=== PATIENT | female | born 1965 | race Hispanic/Latino ===

== ENCOUNTER 2024-05-26 17:39 | Inpatient (IN) | payer BC ==
[~2024-05-26] VITALS: Ht 165.1 cm; Wt 71.7 kg
[2024-05-26 18:48] VITALS: TEMP 97.9
[2024-05-26 19:17] LABS: BASOPHILS # (AUTO) 0.1 (0.0-0.1); BASOPHILS % 0.9 % (0.0-1.0); EOSINOPHILS # (AUTO) 0.1 (0.0-0.4); EOSINOPHILS % 0.8 % (0.0-6.0); HEMATOCRIT 41.8 % (34.2-44.1); HEMOGLOBIN 13.5 g/dL (12.0-16.0); LYMPHOCYTES # (AUTO) 1.7 (1.0-3.2); LYMPHOCYTES % 25.3 % (18.0-39.1); MEAN CORPUSCULAR HEMOGLOBIN 30.8 pg (28-32); MEAN CORPUSCULAR HGB CONC 32.3 g/dL (31-35); MEAN CORPUSCULAR VOLUME 95.2 fL (81-99); MONOCYTES # (AUTO) 0.5 (0.2-0.8); MONOCYTES % 8.1 % (4.4-11.3); NEUTROPHILS # (AUTO) 4.3 (2.1-6.9); NEUTROPHILS % 64.7 % (38.7-80.0); PLATELET COUNT 240 x10e3/uL (140-360); RED BLOOD COUNT 4.39 x10e6/uL (3.6-5.1); RED CELL DISTRIBUTION WIDTH 12.4 % (11.7-14.4); WHITE BLOOD COUNT 6.63 x10e3/uL (4.8-10.8)
[2024-05-26] MEDS: SODIUM CHLORIDE 0.9% 1000ML 1,000 ML IV ONE (19:17)
[2024-05-26 19:21] LABS: BILIRUBIN,URINE NEGATIVE (NEGATIVE); CLARITY,URINE SL CLOUDY (CLEAR); COLOR,URINE YELLOW (YELLOW); GLUCOSE, URINE 500 (NEGATIVE); KETONES,URINE 1+ (NEGATIVE); LEUKOCYTE ESTERASE ,URINE NEGATIVE (NEGATIVE); NITRITE,URINE NEGATIVE (NEGATIVE); PH,URINE 5.5 (5 - 7); PROTEIN,URINE DIPSTICK 2+ (NEGATIVE); URINE UROBILINOGEN 0.2 mg/dL (0.2 - 1)
[2024-05-26 19:31] LABS: LIPASE 227 U/L (8-78)
[2024-05-26 19:34] LABS: ALBUMIN 4.4 g/dL (3.5-5.0); ANION GAP 37.9 mmol/L (8-16); BILIRUBIN,TOTAL 0.6 mg/dL (0.2-1.2); CALCIUM 9.5 mg/dL (8.4-10.2); CREATININE, SERUM 10.8 mg/dL (0.57-1.11); TOTAL PROTEIN 8.8 g/dL (6.5-8.1)
[2024-05-26 19:36] LABS: POTASSIUM 5.9 mmol/L (3.5-5.1)
[2024-05-26 19:42] LABS: AMORPHOUS SEDIMENT,URINE MANY (FEW); BACTERIA,URINE MANY /HPF; EPITHELIAL CELLS,URINE FEW /LPF; RENAL EPITHELIAL CELLS,URINE FEW
[2024-05-26 19:43] LABS: TRANSITIONAL EPI CELLS,URINE MODERATE
[2024-05-26 19:58] LABS: TROPONIN I < 0.001 ng/mL (0-0.300)
[2024-05-26] MEDS: DEXTROSE 50% SYRINGE 50 ML IV ONE (20:04)
[2024-05-26] MEDS: INSULIN REGULAR, HUMAN 100 UNIT/1 ML IV ONE (20:06)
[2024-05-26] MEDS ORDERED: SODIUM CHLORIDE 0.9% 100 ML ONE (20:06)
[2024-05-26] MEDS: SODIUM BICARBONATE 8.4% INJ 50 ML SYR IV STA (20:08)
[2024-05-26] MEDS: CALCIUM CHLORIDE 10% 1.36 MEQ/ML 10ML SYR IV STA (20:08)
[2024-05-26] MEDS: SOD POLYSTYRENE SULFONATE SUSP 15 GM/60 ML BTL PO ONE (20:08)
[2024-05-26] MEDS ORDERED: ONDANSETRON HCL INJ 2MG/ML 2ML 2 MG/ML VIAL IV PRN (22:30)
[2024-05-26] MEDS ORDERED: SODIUM CHLORIDE FLUSH 10 ML SYR INJ PRN (22:30)
[2024-05-26] MEDS ORDERED: DEXTROSE 50% SYRINGE 50 ML IV PRN (22:30)
[2024-05-26 22:40] VITALS: PULSE 88; RESP 18; O2SAT 100
[2024-05-26 22:52] LABS: ABG PCO2 28 mmHg (35-45); ABG PH 7.27 (7.35-7.45)
[2024-05-26 22:53] LABS: ABG HCO3 13 mmol/L (22-26); ABG PO2 105 mmHg (80-105); ABG TCO2 14
[2024-05-26 23:10] VITALS: PULSE 85; RESP 18
[2024-05-26] MEDS: SODIUM BICARBONATE 8.4% SYRING 150 ML in DEXTROSE 5% 1,000 ML IV ONE (23:15)
[2024-05-27] MEDS ORDERED: ONDANSETRON ODT8 MG PO (02:46)
[2024-05-27] MEDS ORDERED: LOSARTAN-HCTZ1 EACH BLADIN (02:46)
[2024-05-27] MEDS ORDERED: PEPCID20 MG PO (02:46)
[2024-05-27] MEDS ORDERED: FAMOTIDINE20 MG PO (02:46)
[2024-05-27] MEDS ORDERED: METFORMIN HCL500 MG PO (02:46)
[2024-05-27 02:49] VITALS: BP 141/74; PULSE 85; RESP 18; TEMP 98.8; O2SAT 100
[2024-05-27 04:00] VITALS: BP 128/71; PULSE 89; RESP 20; TEMP 98; O2SAT 100
[2024-05-27 06:33] LABS: BASOPHILS % 0.5 % (0.0-1.0); EOSINOPHILS # (AUTO) 0.1 (0.0-0.4); EOSINOPHILS % 1.1 % (0.0-6.0); HEMATOCRIT 40.3 % (34.2-44.1); HEMOGLOBIN 13.3 g/dL (12.0-16.0); LYMPHOCYTES # (AUTO) 1.7 (1.0-3.2); LYMPHOCYTES % 22.7 % (18.0-39.1); MEAN CORPUSCULAR HEMOGLOBIN 30.9 pg (28-32); MEAN CORPUSCULAR VOLUME 93.5 fL (81-99); MONOCYTES # (AUTO) 0.7 (0.2-0.8); MONOCYTES % 9.4 % (4.4-11.3); NEUTROPHILS # (AUTO) 4.8 (2.1-6.9); NEUTROPHILS % 65.9 % (38.7-80.0); PLATELET COUNT 246 x10e3/uL (140-360); RED BLOOD COUNT 4.31 x10e6/uL (3.6-5.1); RED CELL DISTRIBUTION WIDTH 12.2 % (11.7-14.4); WHITE BLOOD COUNT 7.31 x10e3/uL (4.8-10.8)
[2024-05-27 06:59] LABS: CREATINE KINASE 84 IU/L (29-168)
[2024-05-27 07:01] LABS: ALBUMIN 4.1 g/dL (3.5-5.0); ANION GAP 25.7 mmol/L (8-16); BILIRUBIN,TOTAL 0.6 mg/dL (0.2-1.2); CALCIUM 9.4 mg/dL (8.4-10.2); CREATININE, SERUM 9.25 mg/dL (0.57-1.11); POTASSIUM 4.7 mmol/L (3.5-5.1); TOTAL PROTEIN 8.3 g/dL (6.5-8.1)
[2024-05-27 07:08] LABS: TROPONIN I < 0.001 ng/mL (0-0.300)
[2024-05-27 07:49] VITALS: BP 141/74; PULSE 85; RESP 18; TEMP 98.8; O2SAT 100
[2024-05-27 09:00] VITALS: BP 103/62; PULSE 90; RESP 18; TEMP 98.8; O2SAT 100
[2024-05-27] MEDS: INSULIN REGULAR, HUMAN 100 UNIT/1 ML SQ SCH (09:23)
[2024-05-27] MEDS: LACTATED RINGER'S 1,000 ML INJ SCH (14:42)
[2024-05-27 17:30] VITALS: BP 100/54; PULSE 80; RESP 19; TEMP 98.5; O2SAT 99
[2024-05-27 20:00] VITALS: BP 113/56; PULSE 87; RESP 20; TEMP 98.7; O2SAT 100
[2024-05-28] VITALS (8 sets, daily range): BP systolic 123–132; BP diastolic 62–74; PULSE 79–98; RESP 17–20; TEMP 98.1–98.7; O2SAT 100
[2024-05-28 05:29] LABS: ANION GAP 17.4 mmol/L (8-16); CALCIUM 8.7 mg/dL (8.4-10.2); CREATININE, SERUM 6.15 mg/dL (0.57-1.11)
[2024-05-28 05:30] LABS: POTASSIUM 3.4 mmol/L (3.5-5.1)
[2024-05-28 06:02] LABS: CREATINE KINASE 79 IU/L (29-168)
[2024-05-28 06:11] LABS: TROPONIN I < 0.001 ng/mL (0-0.300)
[2024-05-28] MEDS: LACTATED RINGER'S 1,000 ML INJ SCH (12:24)
[2024-05-29] VITALS (9 sets, daily range): BP systolic 109–132; BP diastolic 65–76; PULSE 63–95; RESP 17–18; TEMP 98–98.6; O2SAT 98–100
[2024-05-29 06:11] LABS: ANION GAP 17.3 mmol/L (8-16); CREATININE, SERUM 3.07 mg/dL (0.57-1.11)
[2024-05-29 06:12] LABS: CALCIUM 8.1 mg/dL (8.4-10.2)
[2024-05-29 06:14] LABS: POTASSIUM 3.3 mmol/L (3.5-5.1)
[2024-05-29 07:19] LABS: COMPLEMENT C3 172 mg/dL (82-167)
[2024-05-29 09:49] LABS: COMPLEMENT C4 25 mg/dL (12-38)
[2024-05-29 10:06] LABS: TOTAL PROTEIN, URINE 28.4 mg/dL (1-14)
[2024-05-29 10:08] LABS: TOTAL PROTEIN 24HR, URINE 724.2 mg/24hr (50-100)
[2024-05-29 12:22] LABS: ANTI DNA DS ANTIBODY <1 IU/mL (0-9)
[2024-05-29] MEDS: LACTATED RINGER'S 1,000 ML INJ SCH (16:18)
[2024-05-30] VITALS (7 sets, daily range): BP systolic 120–136; BP diastolic 68–70; PULSE 69–78; RESP 16–19; TEMP 97.8–98.6; O2SAT 100
[2024-05-30 06:47] LABS: ANION GAP 14.7 mmol/L (8-16); CALCIUM 7.9 mg/dL (8.4-10.2); CREATININE, SERUM 1.67 mg/dL (0.57-1.11); POTASSIUM 3.7 mmol/L (3.5-5.1)
[2024-05-30 15:16] LABS: cANCA TITER <1:20 titer (Neg:<1:20)
[2024-05-30 16:20] LABS: ATYPICAL pANCA TITER <1:20 titer (Neg:<1:20); pANCA TITER <1:20 titer (Neg:<1:20)
[2024-05-31 09:40] LABS: SPE ALPHA 1 GLOBULIN 0.3
[2024-05-31 09:41] LABS: SPE ALPHA 2 GLOBULIN 0.9; SPE GAMMA GLOBULIN 1.1
[2024-05-31 09:42] LABS: SPE TOTAL PROTEIN 6.7
[2024-05-31 09:43] LABS: GLOBULIN TOTAL 3.5; LAMBDA LIGHT CHAINS 35.1
[2024-05-31 09:44] LABS: KAPPA/LAMBDA RATIO 1.79
[2024-05-31 09:45] LABS: A/G RATIO 0.9
[2024-06-02 18:07] LABS: ABG HCO3 13 mmol/L (22-26); ABG PCO2 28 mmHg (35-45); ABG PH 7.27 (7.35-7.45); ABG PO2 105 mmHg (80-105); ABG TCO2 14
== END 2024-05-30 20:15 | disposition home or self-care (01) | DRG 690 ==
LOC: ER 17:42 → ERHOLD 22:28 → MED/SURG2 05-27 01:38
PROVIDERS: ADMIT Internal Medicine; ATTEND Internal Medicine
PROC: 4A033R1 Measurement of Arterial Saturation, Peripheral, Percutaneous Approach (ICD-10-PCS; principal; 2024-05-27)
PROC: 4A033R1 Measurement of Arterial Saturation, Peripheral, Percutaneous Approach (ICD-10-PCS; 2024-05-27)
DX: N39.0 Urinary tract infection, site not specified (principal); N17.9 Acute kidney failure, unspecified; E87.20 Acidosis, unspecified; R31.29 Other microscopic hematuria; E87.5 Hyperkalemia; E11.65 Type 2 diabetes mellitus with hyperglycemia; R11.2 Nausea with vomiting, unspecified; R80.9 Proteinuria, unspecified; I10 Essential (primary) hypertension; K21.9 Gastro-esophageal reflux disease without esophagitis; Z79.84 Long term (current) use of oral hypoglycemic drugs; Z79.899 Other long term (current) drug therapy
CPT/HCPCS: 36415; 36600; 51700; 71045; 76770; 80048; 80053; 81001; 81050; 82550; 82805; 82948; 83690; 84156; 84165; 84484; 85025; 86021; 86039; 86160; 86225; 87086; 93005; 94799; 99284; J0696; J7030; J7050; J7070; J7799